=== PATIENT | female | born 1950 | race Caucasian/White ===

== ENCOUNTER → 2018-06-02 | Outpatient (CLI) | payer MEDICARE ==
[~2018-06-02] MED LIST: DAYPRO600 M1 PO; FLEXERIL10 MG PO
== END | disposition home or self-care (01) ==
LOC: MAMMO 08:40
DX: Z12.31 Encounter for screening mammogram for malignant neoplasm of breast (principal); I10 Essential (primary) hypertension

== ENCOUNTER → 2019-03-22 | Day surgery (SDC) | payer MEDICARE ==
[~2019-03-22] VITALS: Ht 152.4 cm; Wt 59.9 kg
[~2019-03-22] MED LIST changes: +NORVASC5 MG PO; +TENORMIN50 MG PO; +VOLTAREN50 M1 PO
[2019-03-22 11:32] VITALS: BP 132/74
[2019-03-22 12:48] VITALS: BP 160/56
[2019-03-22 13:03] VITALS: BP 170/66
[2019-03-22 13:18] VITALS: BP 166/60
== END | disposition home or self-care (01) ==
LOC: SDC 03-17 11:00
DX: H25.811 Combined forms of age-related cataract, right eye (principal); I10 Essential (primary) hypertension; Z87.891 Personal history of nicotine dependence

== ENCOUNTER → 2019-04-12 | Day surgery (SDC) | payer MEDICARE ==
[~2019-04-12] VITALS: Ht 152.4 cm; Wt 59.9 kg
[2019-04-12 11:45] VITALS: BP 146/56
[2019-04-12 13:22] VITALS: BP 170/70
[2019-04-12 13:35] VITALS: BP 168/71
[2019-04-12 13:52] VITALS: BP 174/60
== END | disposition home or self-care (01) ==
LOC: SDC 04-07 10:15
DX: H25.812 Combined forms of age-related cataract, left eye (principal); Z87.891 Personal history of nicotine dependence; Z98.890 Other specified postprocedural states; Z79.899 Other long term (current) drug therapy

== ENCOUNTER 2019-09-27 19:19 | Emergency (ER) | payer MEDICARE ==
[~2019-09-27] VITALS: Ht 152.4 cm; Wt 59.0 kg
== END 2019-09-27 23:33 | disposition home or self-care (01) ==
LOC: ED 19:19
DX: I70.201 Unspecified atherosclerosis of native arteries of extremities, right leg (principal); I10 Essential (primary) hypertension; M19.90 Unspecified osteoarthritis, unspecified site; Z79.899 Other long term (current) drug therapy

== ENCOUNTER → 2020-08-02 | Outpatient (CLI) | payer MEDICARE ==
[2020-08-02 11:27] LABS: HEMATOCRIT 46.8 % (37.0-47.0); MEAN CELL VOLUME 87.8 fl (81.0-99.0); MEAN CORPUSCULAR HGB CONC 31.8 g/dl (33.0-37.0); MEAN PLATELET VOLUME 12.8 fl (9.6-12.3); RED BLOOD COUNT 5.33 10*6/uL (4.10-5.10); RED CELL DISTRI WIDTH 14.3 % (0-14.5); WHITE BLOOD COUNT 11.6 10*3/uL (4.8-10.8)
[2020-08-02 12:00] LABS: ALBUMIN 3.7 gm/dl (3.1-4.5); ALKALINE PHOSPHATASE 120 U/L (45-117); BUN 15 mg/dl (7-24); CHLORIDE 104 mmol/L (98-107); CHOLESTEROL 215 mg/dL (<200); CREATININE 0.96 mg/dL (0.55-1.02); LDL CHOLESTEROL 148 mg/dL (9-159); POTASSIUM 4.1 mmol/L (3.5-5.1); SGOT/AST 9 IU/L (3-35); SGPT/ALT 17 U/L (12-78); SODIUM 138 mmol/L (136-145); TOTAL PROTEIN 7.6 gm/dL (6.4-8.2); TRIGLYCERIDES 91 mg/dl (<150)
== END | disposition home or self-care (01) ==
LOC: LAB 10:24
PROVIDERS: ATTEND Physician Assistant
DX: I10 Essential (primary) hypertension (principal); I70.90 Unspecified atherosclerosis; Z12.31 Encounter for screening mammogram for malignant neoplasm of breast; F17.200 Nicotine dependence, unspecified, uncomplicated

== ENCOUNTER → 2020-08-26 | Outpatient (CLI) | payer MEDICARE | END | disposition home or self-care (01) | LOC: MAMMO 08-12 00:25 | PROVIDERS: ATTEND Physician Assistant | DX: Z12.31 Encounter for screening mammogram for malignant neoplasm of breast (principal); N64.89 Other specified disorders of breast ==

== ENCOUNTER → 2022-01-09 | Outpatient (CLI) | payer MEDICARE | END | disposition home or self-care (01) | LOC: RAD 12-26 08:30 | PROVIDERS: ATTEND Physician Assistant | DX: M81.0 Age-related osteoporosis without current pathological fracture (principal); Z78.0 Asymptomatic menopausal state ==

== ENCOUNTER → 2022-07-01 | Outpatient (CLI) | payer MEDICARE | END | disposition home or self-care (01) | LOC: MAMMO 13:30 | PROVIDERS: ATTEND Physician Assistant | DX: Z12.31 Encounter for screening mammogram for malignant neoplasm of breast (principal); F17.210 Nicotine dependence, cigarettes, uncomplicated ==

== ENCOUNTER → 2024-05-31 | Outpatient (CLI) | payer MEDICARE ==
[~2024-05-31] MED LIST changes: +IOHEXOL 300 MG/ML 100 ML VIAL IV ONE
== END | disposition home or self-care (01) ==
LOC: CT 15:00
PROVIDERS: ATTEND Physician Assistant
DX: K76.0 Fatty (change of) liver, not elsewhere classified (principal); I25.10 Atherosclerotic heart disease of native coronary artery without angina pectoris; R59.0 Localized enlarged lymph nodes

== ENCOUNTER → 2024-06-05 | Outpatient (CLI) | payer MEDICARE ==
[~2024-06-05] MED LIST changes: -IOHEXOL 300 MG/ML 100 ML VIAL IV ONE
== END | disposition home or self-care (01) ==
LOC: ORTHO 04:45
PROVIDERS: ATTEND Orthopaedic Surgery
DX: M18.12 Unilateral primary osteoarthritis of first carpometacarpal joint, left hand (principal); M25.742 Osteophyte, left hand; M79.642 Pain in left hand

== ENCOUNTER → 2024-06-29 | Outpatient (CLI) | payer MEDICARE ==
[2024-06-29] VITALS (13 sets, daily range): BP systolic 149–210; BP diastolic 45–85
[~2024-06-29] MED LIST changes: +Lidocaine Hydrochloride 5 ML AMP ONE
[2024-06-29 09:26] LABS: ACT PARTIAL THROMBO TIME 29.6 SECONDS (20.0-32.1)
== END | disposition home or self-care (01) ==
LOC: SDC 05:07 → EDSTATUS 10:00 → SDC 10:00
PROVIDERS: Radiology Diagnostic Radiology; ATTEND Internal Medicine Critical Care Medicine
DX: R91.8 Other nonspecific abnormal finding of lung field (principal); C34.91 Malignant neoplasm of unspecified part of right bronchus or lung; J44.9 Chronic obstructive pulmonary disease, unspecified; Z87.891 Personal history of nicotine dependence

== ENCOUNTER → 2024-08-24 | Outpatient (CLI) | payer MEDICARE ==
[~2024-08-24] MED LIST changes: -Lidocaine Hydrochloride 5 ML AMP ONE
[2024-08-24 15:12] LABS: MEAN CELL VOLUME 84.1 fl (81.0-99.0); MEAN CORPUSCULAR HGB 27.6 pg (27.0-31.0); NUCLEATED RED BLOOD CELL 0.0 % (0.0-0.0); NUCLEATED RED BLOOD CELL 0.0 10*3/uL (0.0-0.0); PLATELET COUNT AUTOMATED 97 10*3/uL (130-400); RED CELL DISTRI WIDTH 16.4 % (0-14.5)
[2024-08-24 15:55] LABS: MANUAL DIFF REFLEX YES
[2024-08-24 16:05] LABS: PLATELET SUFFICIENCY LOW (NORMAL)
== END | disposition home or self-care (01) ==
LOC: LAB 14:38
PROVIDERS: ATTEND Internal Medicine Medical Oncology
DX: C34.31 Malignant neoplasm of lower lobe, right bronchus or lung (principal); J44.9 Chronic obstructive pulmonary disease, unspecified; R05.9 Cough, unspecified; F17.200 Nicotine dependence, unspecified, uncomplicated